=== PATIENT | male | born 1975 | race Caucasian/White ===

== ENCOUNTER 2025-01-10 04:41 | Emergency (ER) | payer OTHER ==
[~2025-01-10] VITALS: Ht 180.3 cm; Wt 132.0 kg
[2025-01-10] MEDS ORDERED: DIPHTH,PERTUSS(ACELL),TET VAC 0.5 ML SYRINGE IM ONE (05:00)
[2025-01-10 05:53] VITALS: BP 133/78
== END 2025-01-10 05:55 | disposition home or self-care (01) ==
LOC: ED 04:41
DX: S61.210A Laceration without foreign body of right index finger without damage to nail, initial encounter (principal); I48.91 Unspecified atrial fibrillation; Z79.01 Long term (current) use of anticoagulants; W26.9XXA Contact with unspecified sharp object(s), initial encounter
CPT/HCPCS: 12001; 90471; 90715; 99282-25